=== PATIENT | male | born 1970 | race Two or more races ===

== ENCOUNTER 2019-02-15 14:16 | Emergency (ER) | payer OTHER ==
[~2019-02-15] VITALS: Ht 170.2 cm; Wt 63.5 kg
[2019-02-15 14:25] VITALS: BP 113/75
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
[2019-02-15] MEDS ORDERED: Acetaminophen 500mg (ES) tab ORAL ONE ×2 (14:30→14:53)
[2019-02-15 14:48] LABS: BASOPHILS % (AUTO) 1.1 % (0.0-2.0); EOSINOPHILS % (AUTO) 1.9 % (0.0-3.0); HEMATOCRIT 33.2 % (42.0-52.0); HEMOGLOBIN 10.9 G/DL (14.2-18.0); LYMPHOCYTES % (AUTO) 28.5 % (20.0-45.0); MEAN CORPUSCULAR VOLUME 87 FL (80-99); MONOCYTES % (AUTO) 9.7 % (1.0-10.0); NEUTROPHILS % (AUTO) 58.9 % (45.0-75.0); PLATELET COUNT 166 K/UL (150-450); RED BLOOD COUNT 3.81 M/UL (4.70-6.10); RED CELL DISTRIBUTION WIDTH 16.7 % (11.6-14.8); WHITE BLOOD COUNT 6.9 K/UL (4.8-10.8)
[2019-02-15 14:50] LABS: APPEARANCE,URINE CLEAR; BILIRUBIN, URINE NEGATIVE (NEGATIVE); COLOR,URINE PALE YELLOW; GLUCOSE, URINE (UA) NEGATIVE (NEGATIVE); KETONES,URINE NEGATIVE (NEGATIVE); LEUKOCYTE ESTERASE ,URINE 3+ (NEGATIVE); NITRITE,URINE NEGATIVE (NEGATIVE); PH,URINE 6 (4.5-8.0); PROTEIN,URINE 3+ (NEGATIVE); UROBILINOGEN,URINE NORMAL MG/DL (0.0-1.0)
[2019-02-15 15:01] LABS: ANION GAP 12 mmol/L (5-15); BLOOD UREA NITROGEN 32 mg/dL (7-18); CALCIUM 8.5 MG/DL (8.5-10.1); CARBON DIOXIDE 19 MMOL/L (21-32); CHLORIDE 107 MMOL/L (98-107); POTASSIUM 4.9 MMOL/L (3.5-5.1); SODIUM 138 MMOL/L (136-145)
[2019-02-15 15:12] LABS: ALANINE AMINOTRANSFERASE 47 U/L (12-78); ALBUMIN 3.5 G/DL (3.4-5.0); ALBUMIN/GLOBULIN RATIO 0.9 (1.0-2.7); ALKALINE PHOSPHATASE 141 U/L (46-116); ASPARTATE AMINO TRANSFERASE 35 U/L (15-37); BILIRUBIN,TOTAL 0.2 MG/DL (0.2-1.0); CREATINE KINASE 87 U/L (26-308)
[2019-02-15] MEDS ORDERED: Cephalexin 500mg cap ORAL ONE (15:15)
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
[2019-02-15] MEDS ORDERED: CEPHALEXIN500 MG ORAL (15:39)
[2019-02-15] MEDS ORDERED: TYLENOL325 MG ORAL (15:39)
[2019-02-15 15:40] VITALS: BP 140/94
[2019-02-15 16:01] VITALS: BP 141/89
--- NOTE | 2019-02-15 16:06 | NUR ---
ED Nurse Note: pt medically clearded by ermd meds well tolerated [employer] and PT given aci and script verbalized understanding and was ambulated out by [employer].
--- NOTE | 2019-02-16 10:26 | Diagnostic Imaging Report ---
Indication: Chest pain Comparison: None A single view chest radiograph was obtained. Findings: Permacath demonstrated on the right in good position. Heart is enlarged. Lungs are clear. Vascularity is normal within the lungs. IMPRESSION: No acute disease
--- NOTE | 2019-02-16 19:24 | Cardiology Report ---
APPROVED REPORT EKG Measurement Heart [id number] Normal sinus rhythm Minimal voltage criteria for LVH, may be normal variant Cannot rule out Anterior infarct, age undetermined Abnormal ECG
== END 2019-02-15 16:23 ==
LOC: EDBD 14:16 → EMR 15:50
DX: R07.9 Chest pain, unspecified (principal); E11.22 Type 2 diabetes mellitus with diabetic chronic kidney disease; I12.0 Hypertensive chronic kidney disease with stage 5 chronic kidney disease or end stage renal disease; N18.6 End stage renal disease; Z99.2 Dependence on renal dialysis; N30.00 Acute cystitis without hematuria; F14.10 Cocaine abuse, uncomplicated
CPT/HCPCS: 36415; 71045; 80053; 80307; 81003; 82550; 83880; 85025; 85610; 85730; 87086; 93005; 99284